=== PATIENT | female | born 1985 | race Caucasian/White ===

== ENCOUNTER 2021-01-14 08:14 | Outpatient (CLI) | payer OTHER, SELFPAY | END 2021-01-14 08:15 | LOC: ANHCOVIDVC 08:14 | DX: Z23 Encounter for immunization (principal) | CPT/HCPCS: 0001A; 91300 ==

== ENCOUNTER 2021-02-04 08:15 | Outpatient (CLI) | payer OTHER, SELFPAY | END 2021-02-04 08:16 | disposition home or self-care (01) | LOC: ANHCOVIDVC 08:16 | DX: Z23 Encounter for immunization (principal) | CPT/HCPCS: 0002A; 91300 ==

== ENCOUNTER → 2021-05-31 01:51 | Outpatient (CLI) | payer OTHER, SELFPAY ==
[2021-05-31 19:54] LABS: SARS-CoV-2 RNA PCR Positive
== END ==
PROVIDERS: PCP Family Medicine Adolescent Medicine; Visit Provider Family Medicine Adolescent Medicine
DX: U07.1 COVID-19 (principal)
CPT/HCPCS: C9803; U0003; U0005